=== PATIENT | female | born 1970 | race Caucasian/White ===

== ENCOUNTER 2019-09-01 09:20 | Emergency (ER) | payer OTHER ==
[~2019-09-01] VITALS: Ht 165.1 cm; Wt 98.3 kg
--- NOTE | 2019-09-01 09:37 | PHYS DOC ---
General Adult EDM: Chief Complaint: CHEST PAIN HPI: HPI: Patient is a 49-year-old female presenting to the ED with a chief complaint of chest pressure. Patient describes it as she is feeling her heart is in her neck. Patient states that the symptoms started earlier this morning. Patient denies shortness of breath, cough, swelling, fever, chills, dysuria. Patient does complain of nausea but no vomiting. Patient also states that she is recently been stressed as her daughter had a stillborn child and her son is being deployed to [employer]. Patient does state that she has a history of anxiety. Patient does admit to being an active smoker. Patient denies any other medical history. Review of Systems: Review of Systems: Constitutional: Denies fever or chills Eyes: Denies change in visual acuity HENT: Denies nasal congestion or sore throat Respiratory: Denies cough or shortness of breath Cardiovascular: Denies chest pain or edema GI: Denies abdominal pain, nausea, vomiting, bloody stools or diarrhea : Denies dysuria Musculoskeletal: Denies back pain or joint pain Integument: Denies rash Heart Score: HEART Score for Chest Pain: HEART Score for Chest Pain Response (Comments) Value History Slighlty/Non-Suspicious 0 ECG Normal 0 Age >45 - < 65 1 Risk Factors No Risk Factors 0 Troponin < Normal Limit 0 Total 1 Risk Factors: Risk Factors: DM, Current or recent (<one month) smoker, HTN, HLP, family history of CAD, obesity. Risk Scores: Score 0 - 3: 2.5% MACE over next 6 weeks - Discharge Home Score 4 - 6: 20.3% MACE over next 6 weeks - Admit for Clinical Observation Score 7 - 10: 72.7% MACE over next 6 weeks - Early Invasive Strategies Physical Exam: PE: Constitutional: Well developed, well nourished, no acute distress, non-toxic appearance. [] HENT: Normocephalic, atraumatic Eyes: EOMI Neck: Normal range of motion, Supple Cardiovascular:Heart rate regular rhythm Lungs & Thorax: Bilateral breath sounds clear to auscultation [] Abdomen: Bowel sounds normal, soft, no tenderness Extremities: No tenderness, ROM intact Neurologic: Alert and oriented X 3 EKG: EKG: EKG interpretation: 9: 27 AM on 09/01/2019 HR: 71 Sinus rhythm Regular intervals Normal axis Nonspecific ST changes No STEMI [] Radiology/Procedures: Radiology/Procedures: [] Impressions: CXR IMPRESSION: No acute pulmonary finding. Course & Med Decision Making: Course & Med Decision Making Pertinent Labs and Imaging studies reviewed. (See chart for details) Ordered labs, chest x-ray, EKG, troponin Also ordered Zofran 4 mg IV. EKG does not show any acute changes. Chest x-ray does not show any acute disease. Labs are within normal limits. Troponin is negative. Repeat troponin is also negative. Patient can be discharged home for outpatient follow-up. While being monitored in the ER, patient has no arrhythmias. Discussed results and plan of care with patient. Patient is instructed to follow up with PCP in one to 2 days. Appropriate discharge instructions given to patient to return to the ED or to seek immediate medical evaluation. Patient is instructed to return to the ED if symptoms worsen or if any concerns. Dragon Disclaimer: Dragon Disclaimer: This electronic medical record was generated, in whole or in part, using a voice recognition dictation system. Departure Departure: Impression: Primary Impression: Nausea Additional Impression: Palpitations Disposition: 01 HOME/RESIDENCE PRIOR TO ADM Condition: STABLE Referrals: CHLOE CAMARILLO (PCP) DOUGLAS EDDY MD Patient Instructions: Nausea, Adult, Palpitations Additional Instructions: Discussed results and plan of care with patient. Patient is instructed to follow up with PCP in one to 2 days. Appropriate discharge instructions given to patient to return to the ED or to seek immediate medical evaluation. Patient is instructed to return to the ED if symptoms worsen or if any concerns. Justification of Admission: Justification of Admission: Justification of Admission Dx: ROSALINDA Mejia DO Sep 01, 2019 09:37
[2019-09-01] MEDS ORDERED: ONDANSETRON PF 4 MG/2 ML VIAL. IVP ONE (09:45)
[2019-09-01 09:53] LABS: BASO # 0.1 x10^3/uL (0.0-0.2); BASO % 1 % (0-3); EOS # 0.4 x10^3/uL (0.0-0.7); EOS % 5 % (0-3); HEMATOCRIT 43.9 % (36.0-47.0); HEMOGLOBIN 14.6 g/dL (12.0-15.5); LYMPH # 2.6 x10^3/uL (1.0-4.8); LYMPH % 30 % (24-48); MEAN CORPUSCULAR HEMOGLOBIN 31 pg (25-35); MEAN CORPUSCULAR HGB CONC 33 g/dL (31-37); MEAN CORPUSCULAR VOLUME 92 fL (79-100); MONO # 0.6 x10^3/uL (0.0-1.1); MONO % 7 % (0-9); NEUT # 5.1 x10^3uL (1.8-7.7); NEUT % 58 % (31-73); PLATELET COUNT 252 x10^3/uL (140-400); RED BLOOD COUNT 4.74 x10^6/uL (3.50-5.40); RED CELL DISTRIBUTION WIDTH 14.6 % (11.5-14.5); WHITE BLOOD COUNT 8.8 x10^3/uL (4.0-11.0)
--- NOTE | 2019-09-01 09:53 | RAD ---
EXAM: Chest, 2 views. HISTORY: Chest pain. COMPARISON: None. FINDINGS: 2 views of the chest are obtained. There is no infiltrate, pleural effusion or pneumothorax. The heart is normal in size. IMPRESSION: No acute pulmonary finding. Electronically signed by: Irma Ledezma MD (09/01/2019 9:50 AM) [id number]
[2019-09-01 10:01] LABS: CREATININE 1.2 mg/dL (0.6-1.0); GFR 47.7; POTASSIUM 4.3 mmol/L (3.5-5.1)
[2019-09-01 10:07] LABS: ALBUMIN 3.4 g/dL (3.4-5.0); TOTAL BILIRUBIN 0.2 mg/dL (0.2-1.0); TOTAL PROTEIN 6.8 g/dL (6.4-8.2)
[2019-09-01 14:30] VITALS: BP 116/90
--- NOTE | 2019-09-01 14:40 | EKG ---
[address] [address] Test Date: 2019-09-01 Test Time: 09:27:28 Pat Name: SHAYNE MULLINS Department: Room: Gender: F [employer] Installer: : 1970 Requested By: ROSALINDA LAWS Order Number: [id number] Reading MD: Measurements Intervals [place] Rate: 71 P: 49 OH: 154 QRS: 13 QRSD: 80 T: 47 QT: 396 QTc: 430 Interpretive Statements SINUS RHYTHM NORMAL ECG RI6.02 No previous ECG available for comparison
== END 2019-09-01 14:48 | disposition home or self-care (01) ==
LOC: ER 09:20
DX: R07.89 Other chest pain (principal); R11.0 Nausea; R00.2 Palpitations
CPT/HCPCS: 36415; 71046; 80053; 83690; 84443; 84484; 85025; 93005; 96374; 96375; 99285; J2060; J2405

== ENCOUNTER → 2019-11-24 | Outpatient (CLI) | payer OTHER | END | disposition home or self-care (01) | LOC: LAB 14:25 | PROVIDERS: ATTEND Internal Medicine Cardiovascular Disease | DX: U07.1 COVID-19 (principal); R51 Headache; R09.81 Nasal congestion | CPT/HCPCS: U0003-CS ==

== ENCOUNTER → 2019-12-06 | Outpatient (CLI) | payer OTHER | END | disposition home or self-care (01) | LOC: LAB 08:04 | PROVIDERS: ATTEND Internal Medicine Cardiovascular Disease | DX: U07.1 COVID-19 (principal); R51 Headache; R09.81 Nasal congestion; R43.0 Anosmia | CPT/HCPCS: U0003-CS ==

== ENCOUNTER → 2019-12-13 | Outpatient (CLI) | payer OTHER | LOC: LAB 09:28 | PROVIDERS: ATTEND Internal Medicine Cardiovascular Disease | DX: R09.89 Other specified symptoms and signs involving the circulatory and respiratory systems (principal); R51.9 Headache, unspecified; R43.8 Other disturbances of smell and taste; Z20.828 Contact with and (suspected) exposure to other viral communicable diseases | CPT/HCPCS: U0003-CS ==

== ENCOUNTER → 2019-12-15 | Outpatient (CLI) | payer OTHER | LOC: LAB 07:33 | PROVIDERS: ATTEND Internal Medicine Cardiovascular Disease | DX: R51.9 Headache, unspecified (principal); R09.81 Nasal congestion; R43.8 Other disturbances of smell and taste; Z20.828 Contact with and (suspected) exposure to other viral communicable diseases | CPT/HCPCS: U0003-CS ==

== ENCOUNTER → 2020-02-28 | Outpatient (CLI) | payer OTHER ==
[2020-02-28 08:49] LABS: ALBUMIN 3.1 g/dL (3.4-5.0); ALBUMIN/GLOBULIN RATIO 0.9 (1.0-1.7); C REACTIVE PROTEIN 3.2 mg/L (0-3.3); CALCIUM 9.2 mg/dL (8.5-10.1); CREATININE 1.1 mg/dL (0.6-1.0); GFR 52.6; POTASSIUM 3.9 mmol/L (3.5-5.1); TOTAL BILIRUBIN 0.2 mg/dL (0.2-1.0); TOTAL PROTEIN 6.4 g/dL (6.4-8.2)
[2020-02-28 08:51] LABS: BASO # 0.1 x10^3/uL (0.0-0.2); BASO % 1 % (0-3); EOS # 0.4 x10^3/uL (0.0-0.7); EOS % 6 % (0-3); HEMATOCRIT 41.5 % (36.0-47.0); HEMOGLOBIN 13.7 g/dL (12.0-15.5); LYMPH # 2.4 x10^3/uL (1.0-4.8); LYMPH % 31 % (24-48); MEAN CORPUSCULAR HEMOGLOBIN 31 pg (25-35); MEAN CORPUSCULAR HGB CONC 33 g/dL (31-37); MEAN CORPUSCULAR VOLUME 92 fL (79-100); MONO # 0.6 x10^3/uL (0.0-1.1); MONO % 7 % (0-9); NEUT # 4.3 x10^3uL (1.8-7.7); NEUT % 55 % (31-73); PLATELET COUNT 235 x10^3/uL (140-400); RED CELL DISTRIBUTION WIDTH 15.1 % (11.5-14.5); WHITE BLOOD COUNT 7.8 x10^3/uL (4.0-11.0)
[2020-02-28 20:07] LABS: RHEUMATOID FACTOR <10.0 IU/mL (0.0-13.9)
== END ==
LOC: PMG 07:50
PROVIDERS: ATTEND Physician Assistant Medical
DX: R53.83 Other fatigue (principal); M25.50 Pain in unspecified joint; R21 Rash and other nonspecific skin eruption; M79.10 Myalgia, unspecified site
CPT/HCPCS: 36415; 80053; 85025; 86038; 86140; 86431

== ENCOUNTER → 2020-05-04 | Outpatient (CLI) | payer OTHER ==
[~2020-05-04] MED LIST: IOHEXOL 300 MG/ML 50 ML VIAL. ONE; IOHEXOL 300 MG/ML 75 ML VIAL. IV ONE
--- NOTE | 2020-05-04 11:42 | RAD ---
CT ABDOMEN WITHOUT AND WITH IV CONTRAST History: Reason: COMMON BILE DUCT BLOCKAGE, RUQ PAIN / Spl. Instructions: / History: Comparison: None. Technique: Noncontrast and intravenous contrast enhanced CTs through the abdomen. Findings: Lung bases are unremarkable. No pleural or pericardial effusion. The liver is within normal limits. Changes from cholecystectomy. No intra or extrahepatic biliary inderjit theron dilatation, common duct measures approximately 5-7 mm diameter. Mild fatty atrophy of the pancrea s. Subcentimeter splenule noted at the pancreatic tail. Unremarkable spleen. Adrenal glands and kidne ys are unremarkable. Proximal ureters within normal limits. The stomach, visualized colon and small bowel are unremarkable. There is an enlarged periportal lymph node or rachael conglomeration measuring 1.3 cm short axis by humberto roximately 3.7 cm long (axial contrast enhanced series 5, image 25; sagittal contrast enhanced series 7, image 43). Unremarkable abdominal vasculature. The soft tissues and osseous structures are noncontributory. Impression: 1. Enlarged periportal lymph node measuring 1.3 cm short axis. Consider correlation with prior imagi ng to evaluate for stability and PET scan for further evaluation. 2. Status post cholecystectomy without intra or extrahepatic biliary ductal dilatation. ------ Exposure: One or more of the following individualized dose reduction techniques were utilized for thi s examination: 1. Automated exposure control 2. Adjustment of the mA and/or kV according to patient size 3. Use of iterative reconstruction technique. Electronically signed by: Ulises Mckeon MD (05/04/2020 11:39 AM) [facility]
[2020-05-04 11:58] LABS: BASO # 0.1 x10^3/uL (0.0-0.2); BASO % 1 % (0-3); EOS # 0.8 x10^3/uL (0.0-0.7); EOS % 7 % (0-3); HEMATOCRIT 47.3 % (36.0-47.0); HEMOGLOBIN 15.4 g/dL (12.0-15.5); LYMPH # 3.1 x10^3/uL (1.0-4.8); LYMPH % 29 % (24-48); MEAN CORPUSCULAR HEMOGLOBIN 31 pg (25-35); MEAN CORPUSCULAR HGB CONC 33 g/dL (31-37); MEAN CORPUSCULAR VOLUME 95 fL (79-100); MONO # 0.7 x10^3/uL (0.0-1.1); MONO % 6 % (0-9); NEUT % 57 % (31-73); PLATELET COUNT 283 x10^3/uL (140-400); RED BLOOD COUNT 4.99 x10^6/uL (3.50-5.40); RED CELL DISTRIBUTION WIDTH 14.6 % (11.5-14.5); WHITE BLOOD COUNT 10.6 x10^3/uL (4.0-11.0)
[2020-05-04 12:08] LABS: ALBUMIN 3.6 g/dL (3.4-5.0); ALBUMIN/GLOBULIN RATIO 0.9 (1.0-1.7); CALCIUM 9.4 mg/dL (8.5-10.1); CREATININE 1.2 mg/dL (0.6-1.0); GFR 47.6; POTASSIUM 4.8 mmol/L (3.5-5.1); TOTAL BILIRUBIN 0.4 mg/dL (0.2-1.0); TOTAL PROTEIN 7.5 g/dL (6.4-8.2)
== END ==
LOC: PMG 09:58
PROVIDERS: ATTEND Physician Assistant Medical
DX: K86.89 Other specified diseases of pancreas (principal); R59.0 Localized enlarged lymph nodes; Z87.19 Personal history of other diseases of the digestive system; Z90.49 Acquired absence of other specified parts of digestive tract
CPT/HCPCS: 36415; 74170; 80053; 82150; 83690; 85025; Q9967

== ENCOUNTER → 2020-09-26 | Outpatient (CLI) | payer OTHER ==
[~2020-09-26] MED LIST changes: +BARIUM SULFATE 60% 355 ML SUSP PO ONE; -IOHEXOL 300 MG/ML 50 ML VIAL. ONE; -IOHEXOL 300 MG/ML 75 ML VIAL. IV ONE
--- NOTE | 2020-09-26 10:45 | RAD ---
Examination: Small Bowel Series: Indication: Abdominal pain, nausea. Comparison: None available FINDINGS: The preliminary film is unremarkable. Following administration of oral barium, images were performed at timed intervals. . The duodenal loop appears normal. The small bowel mucosal pattern is normal. Th ere is no stricture or dilatation. The terminal ileum appears normal. Impression: Negative small bowel series. Electronically signed by: Florentino Acosta MD (09/26/2020 10:43 AM) [id number]
== END ==
LOC: RAD 07:53
PROVIDERS: ATTEND Internal Medicine Gastroenterology
DX: R11.0 Nausea (principal); R10.9 Unspecified abdominal pain
CPT/HCPCS: 74250

== ENCOUNTER → 2020-09-26 | Outpatient (CLI) | payer OTHER ==
[2020-09-26 08:46] LABS: BASO # 0.1 x10^3/uL (0.0-0.2); BASO % 1 % (0-3); EOS # 0.5 x10^3/uL (0.0-0.7); EOS % 7 % (0-3); HEMATOCRIT 42.6 % (36.0-47.0); HEMOGLOBIN 14.3 g/dL (12.0-15.5); LYMPH # 2.3 x10^3/uL (1.0-4.8); LYMPH % 29 % (24-48); MEAN CORPUSCULAR HEMOGLOBIN 31 pg (25-35); MEAN CORPUSCULAR HGB CONC 34 g/dL (31-37); MEAN CORPUSCULAR VOLUME 94 fL (79-100); MONO # 0.6 x10^3/uL (0.0-1.1); MONO % 8 % (0-9); NEUT # 4.4 x10^3uL (1.8-7.7); NEUT % 56 % (31-73); PLATELET COUNT 215 x10^3/uL (140-400); RED BLOOD COUNT 4.54 x10^6/uL (3.50-5.40); RED CELL DISTRIBUTION WIDTH 14.4 % (11.5-14.5); WHITE BLOOD COUNT 7.9 x10^3/uL (4.0-11.0)
[2020-09-26 09:08] LABS: ALBUMIN 3.6 g/dL (3.4-5.0); ALBUMIN/GLOBULIN RATIO 1.2 (1.0-1.7); CALCIUM 8.8 mg/dL (8.5-10.1); CREATININE 1.3 mg/dL (0.6-1.0); GFR 43.4; TOTAL PROTEIN 6.7 g/dL (6.4-8.2)
[2020-09-26 09:09] LABS: POTASSIUM 4.6 mmol/L (3.5-5.1); TOTAL BILIRUBIN 0.4 mg/dL (0.2-1.0)
[2020-09-26 14:52] LABS: FREE T4 1.01 ng/dL (0.76-1.46); THYROID STIM HORMONE (TSH) 1.8 uIU/mL (0.358-3.740)
== END ==
LOC: LAB 07:57
PROVIDERS: ATTEND Physician Assistant Medical
DX: R53.83 Other fatigue (principal); R10.9 Unspecified abdominal pain; R63.5 Abnormal weight gain
CPT/HCPCS: 36415; 80053; 82533; 84439; 84443; 85025

== ENCOUNTER → 2021-01-09 | Outpatient (CLI) | payer OTHER ==
[~2021-01-09] MED LIST changes: -BARIUM SULFATE 60% 355 ML SUSP PO ONE; +IOHEXOL 240 MG/ML 50ML VIAL. ONE; +IOHEXOL 240 MG/ML 50ML VIAL. PO ONE; +IOHEXOL 300 MG/ML 75 ML VIAL. IV ONE
--- NOTE | 2021-01-09 10:23 | RAD ---
EXAM: CT Abdomen and Pelvis with IV contrast CLINICAL HISTORY: Reason: DIFFUSE ABDOMINAL PAIN, F/U LYMPH NODES / Spl. Instructions: DRINKING 0830- 0930, CONTRAST ORDERED / History: . COMPARISON: Normal CT from 05/04/2020 TECHNIQUE: Helical CT of the abdomen and pelvis was performed following the administration of intrave nous contrast. Oral contrast was administered. Axial, coronal and sagittal reformatted images were ge nerated. PQRS compliance statement - One or more of the following individualized dose reduction techniques wer e utilized for this study: 1. Automated exposure control 2. Adjustment of the mA and/or kV according to patient size 3. Use of iterative reconstruction technique FINDINGS: Lower Chest: Visualized lung bases are clear. Abdomen and Pelvis: Liver is normal in size and morphology. No suspicious hepatic lesions. Gallbladder surgically absent. No biliary ductal dilation. Spleen is unremarkable. Mild fatty atrophy of the pancreas. Subcentimete r splenule redemonstrated at the pancreatic tail. Adrenal glands and kidneys are unremarkable. Stomach is opacified with oral contrast and normal. No evidence of bowel obstruction or focal inflamm ation throughout the small and large bowel. Appendix is not definitely visualized. No free intra-abdo scott air or free fluid. Mild colorectal stool burden. Redemonstrated enlarged periportal lymph node measuring 1. 3 cm short axis by approximately 3.7 cm lo ng, unchanged from prior. No additional enlarged abdominal or pelvic adenopathy. The decompressed urinary bladder is unremarkable. Anteverted normal appearing uterus. Variable size b enign nabothian cysts noted about the cervix. 2.4 cm cyst in the left ovary, within normal limits giv en patient's age. Abdominal vasculature is normal in course and caliber. Abdominal wall is unremarkable. Bones: No acute or suspicious osseous abnormality IMPRESSION: 1. No evidence of acute process in the abdomen or pelvis. 2. Similar nonspecific enlarged periportal lymph node measuring 1.3 cm in short axis. May consider sh ort interval follow-up in 6 months and/or PET/CT for further evaluation. Electronically signed by: Taqueria Freed DO (01/09/2021 10:20 AM) [facility]
[2021-01-12 16:12] LABS: GLIA IGA 5 units (0-19); GLIA IGG 1 units (0-19); TRANSGLUTAMINASE IGA AB <2 U/mL (0-3); TRANSGLUTAMINASE IGG AB <2 U/mL (0-5)
== END ==
LOC: CT 08:20
PROVIDERS: ATTEND Internal Medicine Gastroenterology
DX: Z09 Encounter for follow-up examination after completed treatment for conditions other than malignant neoplasm (principal); K86.89 Other specified diseases of pancreas; N83.202 Unspecified ovarian cyst, left side; N88.8 Other specified noninflammatory disorders of cervix uteri
CPT/HCPCS: 74177; 82533; 83516; Q9966; Q9967; 36415

== ENCOUNTER → 2021-08-06 | Outpatient (CLI) | payer OTHER ==
--- NOTE | 2021-08-06 17:52 | RAD ---
EXAM: 3 views of the left elbow DATE: 08/06/2021 5:07 PM INDICATION: Reason: PAIN-INJURY ONE MONTH AGO / Spl. Instructions: / History: COMPARISON: No Prior FINDINGS: No elbow joint effusion. No acute fracture or dislocation. No significant soft tissue swelling. IMPRESSION: No acute fracture or dislocation. Electronically signed by: Aneudy De Leon MD (08/06/2021 5:50 PM) [email or web address]
== END ==
LOC: RAD 16:44
PROVIDERS: ATTEND Nurse Practitioner Family
DX: M25.522 Pain in left elbow (principal)
CPT/HCPCS: 73080